=== PATIENT | male | born 1965 | race Caucasian/White ===

== ENCOUNTER 2022-07-12 14:46 | Observation (INO) ==
[2022-07-12 19:59] LABS: Eosinophils # 0.1 K/mcL (0.0-0.6); Eosinophils % 3.1 %; Hematocrit 25.8 % (37.5-50.1); Hemoglobin 8.5 g/dL (12.9-16.9); Immature Granulocytes % 0.3 % (0-4); Lymphocytes # 0.8 K/mcL (0.6-4.6); Lymphocytes % 27.5 %; Mean Corpuscular HGB Conc 32.9 g/dL (31.6-35.5); Mean Corpuscular Hemoglobin 29.4 pg (28.0-33.3); Mean Corpuscular Volume 89.3 fL (83.0-100.0); Mean Platelet Volume 8.1 fL (9.4-12.4); Monocytes # 0.4 K/mcL (0.0-1.3); Monocytes % 14.6 %; Neutrophils # 1.5 K/mcL (1.6-8.9); Platelet Count 107 K/mcL (140-400); Red Blood Count 2.89 M/mcL (4.19-5.50); Red Cell Distribution Width 13.5 % (11.5-14.5); Segmented Neutrophils % 53.5 %; White Blood Count 2.9 K/mcL (4.3-11.1)
[2022-07-12 20:07] LABS: INR 1.3
[2022-07-12 20:26] LABS: Alanine Aminotransferase 34 Units/L (7-52); Albumin 4.2 g/dL (3.5-5.7); Albumin/Globulin Ratio 1.4 (1.1-2.2); Alkaline Phosphatase 168 Units/L (34-104); Aspartate Amino Transferase 51 Units/L (13-39); BUN/Creatinine Ratio 14 (6-26); Bilirubin,Direct 0.3 mg/dL (0.0-0.2); Bilirubin,Indirect 0.8 mg/dL (0.0-1.0); Bilirubin,Total 1.1 mg/dL (0.3-1.0); Blood Urea Nitrogen 7 mg/dL (6-20); Calcium 9.5 mg/dL (8.6-10.3); Carbon Dioxide 26 mEq/L (23-29); Chloride 94 mEq/L (98-107); Glucose 103 mg/dL (70-105); Osmolality,Calculated 262 (280-300); Potassium 4.4 mEq/L (3.5-5.1); Sodium 127 mEq/L (136-145); Total Protein 7.2 g/dL (6.4-8.9); Troponin I < 0.03 ng/mL (< 0.04)
[2022-07-12] MEDS ORDERED: Furosemide 40 MG/4 ML VIAL IVP ONE (21:21)
[2022-07-12] MEDS ORDERED: Naloxone 0.4 MG/ML INJ IVP PRN ×2 (22:57→23:34)
[2022-07-12] MEDS ORDERED: Melatonin 3 MG TABLET PO PRN (22:57)
[2022-07-12] MEDS ORDERED: Ondansetron ODT 4 MG TAB.RAPDIS SL PRN (22:57)
[2022-07-12] MEDS ORDERED: Acetaminophen 325 MG TABLET PO PRN (23:34)
[2022-07-12] MEDS ORDERED: *HR* HYDROcodone/Acet 5/325 mg TABLET PO PRN (23:34)
[2022-07-12] MEDS ORDERED: 0.9 % Sodium Chloride 1,000 ML IVC SCH (23:45)
[2022-07-13] MEDS: *HR* OxyCODONE Immed Rel 5 MG TABLET PO PRN ×2 (00:04→05:45)
[2022-07-13] MEDS ORDERED: *HR* LORazepam 1 MG TABLET PO PRN ×3 (00:16)
[2022-07-13 00:58] LABS: Bilirubin,Urine Negative (Negative); Blood,Urine Negative (Negative); Clarity,Urine Clear (Clear); Color,Urine Colorless (Yellow); Glucose,Urine (UA) Normal (Normal); Ketones,Urine Negative (Negative); Leukocyte Esterase,Urine Negative (Negative); Nitrite,Urine Negative (Negative); Protein,Urine Negative (Neg-Trace); Specific Gravity,Urine 1.005 (1.010-1.025); Urobilinogen,Urine Normal (Normal)
[2022-07-13 01:04] LABS: Amphetamine Screen,Urine Negative ng/mL (Cutoff=1000); Barbiturate Screen,Urine Negative ng/mL (Cutoff=200); Benzodiazepines Screen,Urine Negative ng/mL (Cutoff=200); Cannabinoid Screen,Urine Negative ng/mL (Cutoff = 50); Cocaine Screen,Urine Negative ng/mL (Cutoff= 300); Opiate Screen,Urine Negative ng/mL (Cutoff=300); Phencyclidine Screen,Urine Negative ng/mL (Cutoff=25)
[2022-07-13 05:57] LABS: Hematocrit 24.2 % (37.5-50.1); Hemoglobin 7.9 g/dL (12.9-16.9); Mean Corpuscular HGB Conc 32.6 g/dL (31.6-35.5); Mean Corpuscular Hemoglobin 28.8 pg (28.0-33.3); Mean Corpuscular Volume 88.3 fL (83.0-100.0); Mean Platelet Volume 8.2 fL (9.4-12.4); Platelet Count 106 K/mcL (140-400); Red Blood Count 2.74 M/mcL (4.19-5.50); Red Cell Distribution Width 13.6 % (11.5-14.5); White Blood Count 2.8 K/mcL (4.3-11.1)
[2022-07-13 06:14] LABS: Amylase 33 Units/L (29-103); Ethanol < 10 mg/dL (Less than 10); Lipase 40 Units/L (11-82)
[2022-07-13 06:28] LABS: BUN/Creatinine Ratio 13 (6-26); Blood Urea Nitrogen 7 mg/dL (6-20); Calcium 9.5 mg/dL (8.6-10.3); Carbon Dioxide 26 mEq/L (23-29); Chloride 95 mEq/L (98-107); Chol/HDL Ratio 1.7 (0-4.9); Cholesterol 109 mg/dL (< 200); Glucose 89 mg/dL (70-105); HDL Cholesterol 63 mg/dL (40-59); LDL Cholesterol,Calculated 38 mg/dL (< 100); Magnesium 1.9 mg/dL (1.6-2.6); Osmolality,Calculated 265 (280-300); Phosphorous 4.5 mg/dL (2.7-4.5); Potassium 3.9 mEq/L (3.5-5.1); Sodium 129 mEq/L (136-145); Triglycerides 41 mg/dL (< 150); Troponin I < 0.03 ng/mL (< 0.04)
[2022-07-13] MEDS: Furosemide 40 MG/4 ML VIAL IVP SCH ×2 (09:32→22:24)
[2022-07-13] MEDS: Vitamin B Complex/Vit C/Vit E 1 EACH TABLET PO SCH (09:32)
[2022-07-13] MEDS: Thiamine (B-1) 100 MG TABLET PO SCH (09:32)
[2022-07-13] MEDS: Folic Acid 1 MG TABLET PO SCH (09:32)
[2022-07-13] MEDS: *HR* OxyCODONE Immed Rel 15 MG TABLET PO PRN ×3 (14:50→23:36)
[2022-07-13] MEDS: OXcarbazepine 150 MG TABLET PO SCH ×2 (14:52→22:23)
[2022-07-13] MEDS: *HR* Heparin 5,000 UNIT/ML VIAL SQ SCH (17:51)
[2022-07-14 03:03] LABS: Basophils % 0.6 %; Eosinophils # 0.2 K/mcL (0.0-0.6); Eosinophils % 4.9 %; Hematocrit 24.2 % (37.5-50.1); Hemoglobin 8.1 g/dL (12.9-16.9); Lymphocytes % 29.7 %; Mean Corpuscular HGB Conc 33.5 g/dL (31.6-35.5); Mean Corpuscular Hemoglobin 29.7 pg (28.0-33.3); Mean Corpuscular Volume 88.6 fL (83.0-100.0); Mean Platelet Volume 7.8 fL (9.4-12.4); Monocytes # 0.5 K/mcL (0.0-1.3); Monocytes % 14.7 %; Neutrophils # 1.6 K/mcL (1.6-8.9); Platelet Count 101 K/mcL (140-400); Red Blood Count 2.73 M/mcL (4.19-5.50); Red Cell Distribution Width 13.7 % (11.5-14.5); Segmented Neutrophils % 50.1 %; White Blood Count 3.3 K/mcL (4.3-11.1)
[2022-07-14 03:21] LABS: % Iron Saturation 6 % (20-55); Iron 32 mcg/dL (65-175); Transferrin 377 mg/dL (203-362)
[2022-07-14] MEDS: *HR* OxyCODONE Immed Rel 15 MG TABLET PO PRN ×3 (03:33→12:39)
[2022-07-14 03:35] LABS: Ferritin 26 ng/mL (20-250)
[2022-07-14 03:41] LABS: BUN/Creatinine Ratio 15 (6-26); Blood Urea Nitrogen 9 mg/dL (6-20); Calcium 9.5 mg/dL (8.6-10.3); Carbon Dioxide 27 mEq/L (23-29); Chloride 96 mEq/L (98-107); Glucose 93 mg/dL (70-105); Magnesium 1.8 mg/dL (1.6-2.6); Osmolality,Calculated 272 (280-300); Phosphorous 5.1 mg/dL (2.7-4.5); Potassium 3.8 mEq/L (3.5-5.1); Sodium 132 mEq/L (136-145)
[2022-07-14 04:17] LABS: Folate 21.6 ng/mL (3.0-16.0)
[2022-07-14] MEDS: *HR* Heparin 5,000 UNIT/ML VIAL SQ SCH (06:24)
[2022-07-14 06:43] VITALS: BP 132/79; PULSE 84; TEMP 98.2; O2SAT 95
[2022-07-14] MEDS: OXcarbazepine 150 MG TABLET PO SCH (07:47)
[2022-07-14] MEDS: Folic Acid 1 MG TABLET PO SCH (07:47)
[2022-07-14] MEDS: Furosemide 40 MG/4 ML VIAL IVP SCH (07:48)
[2022-07-14] MEDS: Thiamine (B-1) 100 MG TABLET PO SCH (07:48)
[2022-07-14] MEDS: Vitamin B Complex/Vit C/Vit E 1 EACH TABLET PO SCH (07:48)
[2022-07-14] MEDS ORDERED: Iron Sucrose Complex 400 MG in 0.9 % Sodium Chloride 250 ML IVPB ONE (08:20)
== END 2022-07-14 12:47 | disposition home or self-care (01) ==
LOC: 3BNU 14:46 → EMEROOARM 14:46 → SUATTDRO 23:07 → 3BNU 23:37
PROVIDERS: ADMIT Internal Medicine; ATTEND Internal Medicine